=== PATIENT | male | born 1970 | race Caucasian/White ===

== ENCOUNTER 2018-05-23 16:55 | Emergency (ER) | payer SELFPAY ==
--- NOTE | 2018-05-23 17:03 | ER Report ---
History and Physical Time Seen By MD: 17:02 (STUART CASTRO MD) HPI/ROS CHIEF COMPLAINT: Public intoxicated HISTORY OF PRESENT ILLNESS: 48-year-old male brought in by the police for usp clearance for public intoxication however on arrival his pulse oxygenation was only at 74 he admits to drinking daily could potentially of aspirated patient is also smokes whenever he can get his hands on patient has no past medical history is aware of he denies any complaints this time other than being drunk he denies chest pain shortness of breath cough fever chills nausea vomiting diarrhea or abdominal pain REVIEW OF SYSTEMS: Respiratory: No cough, no dyspnea. Cardiovascular: No chest pain, no palpitations. Gastrointestinal: No vomiting, no abdominal pain. Musculoskeletal: No back pain. Remainder of the 14 system rev: Yes (STUART CASTRO MD) Allergies: Uncoded Allergies: seasonal (Allergy, Mild, 05/24/18) Congestion Home Meds No Active Prescriptions or Reported Meds Reviewed Nurses Notes: Yes Old Medical Records Reviewed: Yes (STUART CASTRO MD) Constitutional Vital Sign - Last 24 Hours 05/23/18 05/23/18 05/23/18 05/23/18 16:55 16:57 16:57 17:10 Temp 97.8 Pulse 119 115 114 Resp 24 12 B/P (MAP) 131/106 Pulse Ox 73 74 O2 Delivery Room Air O2 Flow Rate 5.0 05/23/18 05/23/18 05/23/18 05/23/18 17:20 17:25 17:30 18:18 Pulse 113 113 Resp 13 11 B/P (MAP) 153/103 (120) 137/88 (104) Pulse Ox 89 05/23/18 05/23/18 18:25 18:30 Pulse 106 Resp 34 B/P (MAP) 128/85 (99) Pulse Ox 89 (ALIA RESENDIZ MD) Physical Exam General Appearance: The patient is alert, has no immediate need for airway protection and no current signs of toxicity. Disheveled intoxicated smells of alcohol Eyes: Pupils equal and round no injection. Respiratory: Chest is non tender, lungs demonstrate an extra wheezes throughout both lung burton right slightly greater than left mild coarse crackles at the bases. Cardiac: regular rate and rhythm [ ] Gastrointestinal: Abdomen is soft and non tender, no masses, bowel sounds normal. Musculoskeletal: Neck: Neck is supple and non tender. Extremities have full range of motion and are non tender. Skin: No rashes or lesions. [ Neurologically intact GCS of 15 alert and oriented 4] DIFFERENTIAL DIAGNOSIS: After history and physical exam differential diagnosis was considered for COPD congestive heart failure myocardial infarction pneumonia (STUART CASTRO MD) Medical Decision Making Data Points Result Diagram: 05/23/18 1710 05/23/18 1710 Laboratory Hematology Test 05/23/18 17:10 05/23/18 17:43 05/23/18 20:39 Red Blood Count 4.81 M/uL (4.00-5.60) Mean Corpuscular Volume 104.3 fL (80.0-96.0) Mean Corpuscular Hemoglobin 37.0 pg (26.0-33.0) Mean Corpuscular Hemoglobin Concent 35.5 g/dL (32.0-36.0) Red Cell Distribution Width 13.0 % (11.5-14.5) Mean Platelet Volume 8.6 fL (7.2-11.1) Neutrophils (%) (Auto) 57.9 % (39.4-72.5) Lymphocytes (%) (Auto) 32.4 % (17.6-49.6) Monocytes (%) (Auto) 8.8 % (4.1-12.4) Eosinophils (%) (Auto) 0.2 % (0.4-6.7) Basophils (%) (Auto) 0.7 % (0.3-1.4) Nucleated RBC Relative Count (auto) 0.0 /100WBC Neutrophils # (Auto) 3.9 K/uL (2.0-7.4) Lymphocytes # (Auto) 2.2 K/uL (1.3-3.6) Monocytes # (Auto) 0.6 K/uL (0.3-1.0) Eosinophils # (Auto) 0.0 K/uL (0.0-0.5) Basophils # (Auto) 0.0 K/uL (0.0-0.1) Nucleated RBC Absolute Count (auto) 0.00 K/uL D-Dimer Quantitative (PE/DVT) 3.81 ug/ml (0-0.50) Sodium Level 143 mmol/L (137-145) Potassium Level 4.0 mmol/L (3.5-5.0) Chloride Level 101 mmol/L (98-107) Carbon Dioxide Level 27 mmol/L (22-30) Blood Urea Nitrogen 8 mg/dl (9-21) Creatinine 0.50 mg/dl (0.66-1.25) Glomerular Filtration Rate Calc > 60.0 Random Glucose 108 mg/dl (75-110) Calcium Level 9.1 mg/dl (8.4-10.2) Magnesium Level 1.5 mg/dl (1.7-2.2) Total Bilirubin 0.7 mg/dl (0.2-1.3) Aspartate Amino Transf (AST/SGOT) 163 U/L (0-35) Alanine Aminotransferase (ALT/SGPT) 82 U/L (0-56) Alkaline Phosphatase 85 U/L (0-126) Troponin I 0.017 ng/ml B-Type Natriuretic Peptide 18 pg/ml (0-100) Total Protein 7.9 g/dl (6.3-8.2) Albumin 4.5 g/dl (3.5-5.0) Salicylates Level < 10 mg/L Salicylate Last Dose Date unk Acetaminophen Level < 10 ug/ml Serum Alcohol 526 mg/dl Blood Gas Puncture Site Right radial Blood Gas Patient Temperature 97.8 DEGREES Arterial Blood pH 7.44 (7.35-7.45) Arterial Blood Partial Pressure CO2 37 mmHg (32-37) Arterial Blood Partial Pressure O2 79 mmHg (60-80) Arterial Blood HCO3 25 mmol/L (20-26) Arterial Blood Oxygen Saturation 96 % (92-100) Arterial Blood Base Excess 1.0 mmol/L Geovanny Test Acceptable Oxygen Liters/Minute 4l Urine Opiates Screen Negative Urine Barbiturates Screen Negative Ur Tricyclic Antidepressants Screen Negative Urine Phencyclidine Screen Negative Urine Amphetamines Screen Negative Urine Benzodiazepines Screen Negative Urine Cocaine Screen Negative Urine Cannabinoids Screen Negative Chemistry Test 05/23/18 17:10 05/23/18 17:43 05/23/18 20:39 White Blood Count 6.8 k/uL (4.5-11.0) Red Blood Count 4.81 M/uL (4.00-5.60) Hemoglobin 17.8 g/dL (14.0-18.0) Hematocrit 50.1 % (42.0-52.0) Mean Corpuscular Volume 104.3 fL (80.0-96.0) Mean Corpuscular Hemoglobin 37.0 pg (26.0-33.0) Mean Corpuscular Hemoglobin Concent 35.5 g/dL (32.0-36.0) Red Cell Distribution Width 13.0 % (11.5-14.5) Platelet Count 130 K/uL (150-450) Mean Platelet Volume 8.6 fL (7.2-11.1) Neutrophils (%) (Auto) 57.9 % (39.4-72.5) Lymphocytes (%) (Auto) 32.4 % (17.6-49.6) Monocytes (%) (Auto) 8.8 % (4.1-12.4) Eosinophils (%) (Auto) 0.2 % (0.4-6.7) Basophils (%) (Auto) 0.7 % (0.3-1.4) Nucleated RBC Relative Count (auto) 0.0 /100WBC Neutrophils # (Auto) 3.9 K/uL (2.0-7.4) Lymphocytes # (Auto) 2.2 K/uL (1.3-3.6) Monocytes # (Auto) 0.6 K/uL (0.3-1.0) Eosinophils # (Auto) 0.0 K/uL (0.0-0.5) Basophils # (Auto) 0.0 K/uL (0.0-0.1) Nucleated RBC Absolute Count (auto) 0.00 K/uL D-Dimer Quantitative (PE/DVT) 3.81 ug/ml (0-0.50) Glomerular Filtration Rate Calc > 60.0 Calcium Level 9.1 mg/dl (8.4-10.2) Magnesium Level 1.5 mg/dl (1.7-2.2) Total Bilirubin 0.7 mg/dl (0.2-1.3) Aspartate Amino Transf (AST/SGOT) 163 U/L (0-35) Alanine Aminotransferase (ALT/SGPT) 82 U/L (0-56) Alkaline Phosphatase 85 U/L (0-126) Troponin I 0.017 ng/ml B-Type Natriuretic Peptide 18 pg/ml (0-100) Total Protein 7.9 g/dl (6.3-8.2) Albumin 4.5 g/dl (3.5-5.0) Salicylates Level < 10 mg/L Salicylate Last Dose Date unk Acetaminophen Level < 10 ug/ml Serum Alcohol 526 mg/dl Blood Gas Puncture Site Right radial Blood Gas Patient Temperature 97.8 DEGREES Arterial Blood pH 7.44 (7.35-7.45) Arterial Blood Partial Pressure CO2 37 mmHg (32-37) Arterial Blood Partial Pressure O2 79 mmHg (60-80) Arterial Blood HCO3 25 mmol/L (20-26) Arterial Blood Oxygen Saturation 96 % (92-100) Arterial Blood Base Excess 1.0 mmol/L Geovanny Test Acceptable Oxygen Liters/Minute 4l Urine Opiates Screen Negative Urine Barbiturates Screen Negative Ur Tricyclic Antidepressants Screen Negative Urine Phencyclidine Screen Negative Urine Amphetamines Screen Negative Urine Benzodiazepines Screen Negative Urine Cocaine Screen Negative Urine Cannabinoids Screen Negative Coagulation Test 05/23/18 17:10 D-Dimer Quantitative (PE/DVT) 3.81 ug/ml Toxicology Test 05/23/18 17:10 05/23/18 20:39 Salicylates Level < 10 mg/L Salicylate Last Dose Date unk Acetaminophen Level < 10 ug/ml Serum Alcohol 526 mg/dl Urine Opiates Screen Negative Urine Barbiturates Screen Negative Ur Tricyclic Antidepressants Screen Negative Urine Phencyclidine Screen Negative Urine Amphetamines Screen Negative Urine Benzodiazepines Screen Negative Urine Cocaine Screen Negative Urine Cannabinoids Screen Negative (ALIA RESENDIZ MD) ED Course/Re-evaluation ED Course Discussed this patient with Dr. Casrto at shift change, sign-out, and assumed care of the patient. CTA of the chest, CT of the cervical spine, and chest x-ray were obtained. These were negative for acute problems. Hypoxia has improved, small amount of oxygen still needed, and thought due to intoxication only as it drops when the patient sleeps. Labs show alcohol at 526. Changes in other labs consistent with chronic alcohol use. The patient has expressed interest at being admitted to the hospital so he can stop drinking. Given a Banana Bag IV after CT scans were done. Discussed case with Dr. See, who has accepted the patient for admission to [facility]. Decision to Disposition Date: May 23, 2018 Decision to Disposition Time: 19:52 (ALIA RESENDIZ MD) Depart Departure Latest Vital Signs Vital Signs Date Time Temp Pulse Resp B/P (MAP) Pulse Ox O2 Delivery O2 Flow Rate FiO2 05/23/18 18:30 128/85 (99) 05/23/18 18:25 106 34 89 05/23/18 16:57 5.0 05/23/18 16:57 97.8 Room Air (ALIA RESENDIZ MD) Impression: Primary Impression: Alcohol intoxication Additional Impression: Alcohol use disorder, severe, dependence Condition: Improved Disposition: XFER TO [facility] New Scripts No Active Prescriptions or Reported Meds Problem Qualifiers Primary Impression: Alcohol intoxication Complication of substance-induced condition: uncomplicated Qualified Codes: F10.920 - Alcohol use, unspecified with intoxication, uncomplicated STUART CASTRO MD May 23, 2018 17:03 ALIA RESENDIZ MD May 23, 2018 18:05
[2018-05-23] MEDS ORDERED: ALBUTEROL/IPRATROPIUM 3 ML NEB NEB ONE (17:05)
[2018-05-23 17:24] LABS: PLATELET COUNT, AUTOMATED 130 K/uL (150-450)
[2018-05-23] MEDS ORDERED: IOPAMIDOL 76% 100 ML INFUS BTL 100 ML ONE (18:05)
[2018-05-23] MEDS ORDERED: NS 0.9% 25 ML BAG 50 ML ONE (18:05)
--- NOTE | 2018-05-23 18:15 | RADIOLOGY IMAGING REPORT ---
FACILITY: [facility] - [place] PATIENT NAME: Jesus Massey : 1970 MR: [id number] V: [id number] EXAM DATE: ORDERING PHYSICIAN: STUART CASTRO TECHNOLOGIST: Location: [facility] [place] Patient: Jesus Massey : 1970 Visit/Account:[id number] Date of Sevice: 05/23/2018 EXAMINATION: Cervical spine radiographs 2 views HISTORY: Fall. COMPARISON: None. FINDINGS: AP and lateral views of the cervical spine are obtained. Bones: The lower cervical spine is not well visualized on the lateral view. No evidence of acute fra cture in the visualized portions of the cervical spine. Disc spaces: Disc degenerative changes in the lower cervical spine. Posterior elements: No evidence of acute fracture. Alignment: Normal. Hardware: None. Soft tissues: Negative. Visualized lung apices: Negative. IMPRESSION: The lower cervical spine is not well visualized on the lateral radiograph. No evidence of acute fracture of the cervical spine. Disc degenerative changes in the cervical spine. Report Dictated By: Kolton Medel MD at 05/23/2018 6:07 PM Report E-Signed By: Kolton Medel MD at 05/23/2018 6:11 PM WSN:[id number]
--- NOTE | 2018-05-23 18:17 | RADIOLOGY IMAGING REPORT ---
FACILITY: [facility] PATIENT NAME: Jesus Massey : 1970 MR: [id number] V: [id number] EXAM DATE: ORDERING PHYSICIAN: STUART CASTRO TECHNOLOGIST: Location: [facility] - [place] Patient: Jesus Massey : 1970 Visit/Account:[id number] Date of Sevice: 05/23/2018 EXAMINATION: Chest radiographs 2 views HISTORY: Shortness of breath. COMPARISON: None. FINDINGS: PA and lateral views of the chest are submitted. Lines/tubes: None. Lungs/pleura: No focal consolidation or pleural effusion. Pulmonary vascularity is within normal sullivan its. No evidence of pneumothorax. Heart: Normal heart size. Mediastinum: Negative. Bony structures/body wall: Negative. IMPRESSION: No radiographic evidence of acute cardiopulmonary disease. Report Dictated By: Kolton Medel MD at 05/23/2018 6:12 PM Report E-Signed By: Kolton Medel MD at 05/23/2018 6:13 PM WSN:[id number]
[2018-05-23] MEDS ORDERED: THIAMINE HCL(*) 200 MG/2 ML IN 100 MG, FOLIC ACID(*) 50 MG/10 ML INJ 1 MG, MULTIVITAMIN... IV ONE (18:25)
[2018-05-23] MEDS ORDERED: MAGNESIUM SUL 50% 1GM/2ML VIAL ONE (18:29)
[2018-05-23 18:30] VITALS: BP 128/85
--- NOTE | 2018-05-23 18:31 | EKG ---
FACILITY: [facility] PATIENT NAME: ILSA DOSS : [id number] MR: [id number] V: [id number] EXAM DATE: ORDERING PHYSICIAN: STUART CASTRO TECHNOLOGIST: ALBERTINA Test Reason : ETOH Blood Pressure : / mmHG Vent. Rate : 105 BPM Atrial Rate : 105 BPM P-R Int : 156 ms QRS Dur : 086 ms QT Int : 362 ms P-R-T Axes : 065 072 056 degrees QTc Int : 478 ms Sinus tachycardia Possible Anterior infarct , age undetermined Abnormal ECG No previous ECGs available Confirmed by RUPERT MEYERS ([id number]) on 05/23/2018 9:39:09 PM Referred By: MATTHEW Confirmed By:RUPERT MEYERS
--- NOTE | 2018-05-23 18:51 | RADIOLOGY IMAGING REPORT ---
[place] [facility] [place] NAME: Jesus Massey : 1970 MR: [id number] V: [id number] EXAM DATE: ORDERING PHYSICIAN: STUART CASTRO TECHNOLOGIST: Location: [facility] - [place] Patient: Jesus Massey : 1970 Visit/Account:[id number] Date of Sevice: 05/23/2018 CT angiogram chest with contrast Indication: Shortness breath. Fall. Comparison: None available. Technique: Axial CT images are obtained through the chest after administration of 100 mL Isovue 370 I V contrast. Reformatted coronal and sagittal images were reviewed as well as coronal MIP images. One of the following dose optimization techniques was utilized in the performance of this exam: auto mated exposure control; adjustment of the mA and/or kV according to the patient's size; or use of an iterative reconstruction technique. Specific details can be referenced in the facility's radiology C T exam operational policy. FINDINGS: No evidence of filling defect within the pulmonary vasculature to suggest pulmonary embolus. Heart is normal size without pericardial effusion. Aorta shows no aneurysm or dissection. The mediast inum and hilar regions show no enlarged lymph nodes or abnormal density. Lungs show dependent atelectasis. No consolidations, pleural effusion or pneumothorax. There are dorene ral small thin-walled cyst seen in both lungs mainly in the lower lung burton without focal abnormali ty. These are nonspecific and appear to be thin-walled benign fossa from a previous insult. No discre te nodules or focal interstitial opacities. Airways are clear. Bony structures show no acute fracture or aggressive bony lesions. Degenerative changes spine. The ch est wall shows no enlarged axillary lymph nodes or masses. Small hiatal hernia. The liver is diffusely hypodense without focal abnormality. The left adrenal gla nd does show a 1.2 cm nodule Hounsfield 1 consistent with adenoma. Upper abdomen is otherwise unremar kable. IMPRESSION: 1. No evidence of pulmonary embolus. 2. No acute cardiothoracic abnormality 3. Hypodense liver consistent with fatty infiltration or chronic disease. No focal abnormality. 4. Left adrenal gland adenoma. 5. Other chronic findings as above. Report Dictated By: Bryson Ruby at 05/23/2018 6:37 PM Report E-Signed By: Bryson Ruby at 05/23/2018 6:47 PM WSN:[id number]
== END 2018-05-24 02:08 ==
LOC: ER 17:08
DX: F10.229 Alcohol dependence with intoxication, unspecified (principal); R00.0 Tachycardia, unspecified; R09.02 Hypoxemia; R06.02 Shortness of breath
CPT/HCPCS: 71046; 71275; 72040; 80305; 80320; 80329; 82803; 83735; 83880; 84484; 85025; 85379; 93005; 94640; 96365; 96366; 99284; J3411; J3475; J7030; J7620; Q9967; 82040; 82247; 82310; 82374; 82435; 82565; 82947; 84075; 84132; 84155; 84295; 84450; 84460; 84520

== ENCOUNTER 2018-05-23 22:00 | Inpatient (IN) | payer SELFPAY ==
[~2018-05-23] VITALS: Ht 185.4 cm; Wt 74.8 kg
[2018-05-23] MEDS ORDERED: MAG HYD/AL HYD/SIMETH 30ML UDC PO PRN (22:20)
[2018-05-23 22:29] VITALS: BP 130/85
[2018-05-23] MEDS: DIAZEPAM 10 MG TAB PO PRN ×2 (22:43→23:38)
[2018-05-24] VITALS (9 sets, daily range): BP systolic 103–142; BP diastolic 64–95
[2018-05-24] MEDS: DIAZEPAM 10 MG TAB PO PRN ×12 (00:40→19:48)
[2018-05-24] MEDS: ALBUTEROL/IPRATROPIUM 3 ML NEB NEB PRN ×2 (07:53→12:56)
[2018-05-24] MEDS: FOLIC ACID 1 MG TAB PO SCH (08:18)
[2018-05-24] MEDS: MULTIVITAMINS TAB PO SCH (08:18)
[2018-05-24] MEDS: THIAMINE HCL 100 MG TAB PO SCH (08:19)
[2018-05-24 09:06] LABS: PLATELET COUNT, AUTOMATED 100 K/uL (150-450)
[2018-05-24] MEDS ORDERED: LOPERAMIDE HCL 2 MG CAP PO ONE (13:55)
--- NOTE | 2018-05-24 14:06 | SCHAAF H&P ---
DATE OF ADMISSION: May 23, 2018 The patient was seen in the a.m. of May 24, 2108 at approximately 1030 hours for note concerning this dictation. PRESENTING PROBLEM, CHIEF COMPLAINT Severe alcohol intoxication and pending alcohol withdrawal. HISTORY OF PRESENT ILLNESS This is 48-year-old male who arrived in the Emergency Room accompanied by police to take him to [facility]. The patient again, taken to the Emergency Room initially for medical clearance to go to [facility] for a public intoxication charge. While the patient was in the Emergency Room he was found to have a critically high blood alcohol level of 526. It was believed to be at that point the police decided that he should not go to [facility] for any related charges. The patient at that time was being monitored to sober up some, where he could voluntarily go home. The patient then reporting that he would like help with alcohol withdrawal treatment. The patient was given a Banana-Bag, continued to be monitored for any medical distress, and was eventually admitted on a voluntary basis to the Behavioral Health unit. The patient requiring Valium throughout the night. The patient having active alcohol withdrawal, even in the presence of extreme amounts of alcohol. During the next day's interview, the patient in a state that made any productive interview very difficult at best. The patient states he does not have much of a memory of a last night. He did talk about entering rehab and suffering from long-term alcohol use disorder. The patient cooperative, polite, and patient agreed to stay until alcohol withdrawal could be completed. MENTAL HEALTH HISTORY The rest of mental health history is unknown at this time. FAMILY PSYCHIATRIC HISTORY/PAST MEDICAL HISTORY/SOCIAL HISTORY Unknown. LEGAL HISTORY The patient has a legal history significant for two DUI's. The patient denying any other symptoms of psychiatric concerns. SUBSTANCE ABUSE HISTORY The patient was able to report that he is a pack-a-day smoker and appears to have some clubbing on fingers as well, and this may impair current oxygen saturations which are being monitored closely. PHYSICAL EXAMINATION Please see emergency room note. Notable for a critically intoxicated 48-year- old male at time of arrival. Vital signs at the time of admission: Temperature 97.8, pulse 115, respiratory rate 24, blood pressure 131/106 and pulse oximetry 74% and low on room air at 5 liters. LABORATORY DATA MCV elevated at 104.3 with an MCH elevated at 37, platelet count 130,000. D- Dimer was elevated at 3.81. Chemistry panel notable for AST elevated at 163, ALT 82. Magnesium slightly low at 1.5 with a total bilirubin of 0.7. Beta natriuretic peptide was 18. Toxicology screen negative for substances of abuse with a serum alcohol level of 526. The patient had imaging of chest done secondary to chest pain and shortness of breath which was unremarkable for acute changes. Please see electronic record. MENTAL STATUS EXAMINATION GENERAL APPEARANCE, BEHAVIOR AND ATTITUDE: This is pleasant, polite and cooperative 48-year-old male continuing to withdrawal from alcohol at this time and being actively treated. Psychomotor retardation evident. Note periods of tearfulness. The patient to make eye contact and communicate softly. SPEECH: Soft and slowed. MOOD: Unable to fully assess. AFFECT: Calm. THOUGHT PROCESSES: The patient able to indicate he would like to stay for help with alcohol withdrawal. No loose associations or flight of ideas. THOUGHT CONTENT: Free of any obvious auditory or visual hallucinations, ideas of reference, thought broadcastings, delusions, obsessions or compulsions. The patient not to believe to have any suicidal or homicidal ideations. SENSORIUM: Clouded. COGNITION: Patient largely alert and oriented to person, place. MEMORY: Immediate, recent and remote estimated at grossly intact in the absence of alcohol. INTELLIGENCE: Unable to fully assess. INSIGHT AND JUDGMENT: In the absence of acute intoxication or withdrawal, likely to be found to be intact. ASSESSMENT This is a 48-year-old male admitted voluntarily for alcohol withdrawal in the state of extreme alcohol intoxication with a blood alcohol of 526. At this time will continue to treat the patient's withdrawal and monitor closely for any other medical concerns including what appears to be a chronic hypoxic state, possibly worsened by acute intoxication along with treatment with Benzodiazepines for withdrawal. Will continue to gain collateral information. DIAGNOSES PER DSM 5 1. Alcohol intoxication. 2. Alcohol use disorder, severe. 3. Alcohol withdrawal. PLAN 1. Will admit to the unit. 2. Necessary precautions will be implemented. 3. The patient will participate in individual and group therapy. 4. Medications will be administered and titrated accordingly. Will treat alcohol withdrawal with Diazepam per [facility] protocol. 5. Collateral information to be obtained as necessary. 6. Estimated length of stay five to seven days. [facility]
[2018-05-25 00:36] VITALS: BP 134/76
[2018-05-25 03:13] VITALS: BP 132/80
[2018-05-25] MEDS: LOPERAMIDE HCL 2 MG CAP PO PRN ×3 (03:17→12:53)
[2018-05-25 06:30] VITALS: BP 132/82
[2018-05-25 06:40] LABS: PLATELET COUNT, AUTOMATED 81 K/uL (150-450)
[2018-05-25] MEDS: MULTIVITAMINS TAB PO SCH (08:17)
[2018-05-25] MEDS: FOLIC ACID 1 MG TAB PO SCH (08:17)
[2018-05-25] MEDS: THIAMINE HCL 100 MG TAB PO SCH (08:17)
[2018-05-25 09:50] VITALS: BP 140/88
[2018-05-25 12:05] VITALS: BP 142/92
--- NOTE | 2018-05-25 14:50 | BHS Progress Note ---
BHS - Subjective Progress Notes Subjective Pt seen in treatment team meeting with staff. Pt doing better today than yesterday, though still scoring 11 this am on CIWA, is tremulous, unsteady on his feet, has had diarrhea, still needing supplemental O2 at 6 L nasal cannula to maintain sats. Yesterday required 240 mg total of valium. Later in the afternoon today he is doing better, as of 2:40 pm has maintained O2 sats at 90- 91 on room air, did get up and get a shower, is feeling better, has not needed any valium this shift. Pt reports a desire to go to rehab, we discussed the options available in [place]. He reports that he did have a 7 year period of sobriety beginning in 2004. He has in past attended AA meetings regularly and had a sponsor. He currently lives with roommates who drink. He has been employed as a [employer] contractor. He says he has a decent relationship with mother and sister who live in [place]. We discussed the finding of fatty liver noted on CT scan done in ER, and how this will progress to cirrhosis if he keeps drinking. Will continue to monitor CIWA's and O2 sats, using valium as needed. He started eating this am at breakfast-- will check chem panel again tomorrow am, mg was a bit low at 1.4 but this may correct with po intake. Suicidal Ideation: None Homicidal Ideation: None BHS - Objective Physical Exam Vital Signs Vital Signs 05/25/18 05/25/18 05/25/18 12:05 13:15 14:10 Temp 98.5 Pulse 105 Resp 20 B/P (MAP) 142/92 (109) Pulse Ox 90 O2 Delivery Room Air O2 Flow Rate 6.0 Muscle Strength and Tone: Other (generalized weakness by observation) Gait and Station: Unsteady [facility] Medications Reviewed: Side Effects, Benefits of Medication, Risks Allergies Reviewed: Yes Mental Status Exam General Appearance: Unkept, Tearful, Other (tremulous) Speech: Slurred, Garbled Mood: Dysthmic/Depressed Affect: Sad, Flat, Withdrawn, Other (ill-appearing c/w alcohol withdrawal) Thought Process: Organized, Logical, Goal Directed Thought Content: No Suicidal Ideation, No Homicidal Ideation, No Delusions, No Auditory Halllucinations, No Visual Hallucinations, No Thought Broadcasting, No Ideas of Reference, No Obsessions, No Compulsions, No Other Sensorium: Clear Cognition: Alert & Oriented-Person, Alert & Oriented-Place, Alert-Oriented- Situation Memory: Immediate, Recent, Remote Intelligence: Average Insight Judgment: Fair Result Diagram: 05/25/1825 05/25/1825 [facility] Assessment and Plan [id number] Encounter Date: May 25, 2018 [id number] Encounter Time: 09:00 [facility] Plan: Admit to Unit, Necessary Precautions, Individual/Group Therapy, Admin /Titrate Meds, Educate Patient Tobacco Medications: Started Multpiple Antipsychotics Used: No Problems: (1) Alcohol withdrawal (2) Alcohol use disorder, severe, dependence Status: Acute RANDA MARRERO MD May 25, 2018 14:49
[2018-05-25 17:46] VITALS: BP 138/92
[2018-05-25] MEDS: DIAZEPAM 10 MG TAB PO PRN (21:12)
[2018-05-26 00:10] VITALS: BP 126/82
[2018-05-26 06:49] LABS: PLATELET COUNT, AUTOMATED 85 K/uL (150-450)
[2018-05-26 08:10] VITALS: BP 136/78
[2018-05-26] MEDS: THIAMINE HCL 100 MG TAB PO SCH (08:16)
[2018-05-26] MEDS: FOLIC ACID 1 MG TAB PO SCH (08:16)
[2018-05-26] MEDS: MULTIVITAMINS TAB PO SCH (08:16)
[2018-05-26] MEDS: NICOTINE INH SYSTEM 10 MG/INH INH PRN (11:28)
[2018-05-26] MEDS: NICOTINE CARTRIDGE 1 EA PO PRN ×2 (11:29→17:48)
--- NOTE | 2018-05-26 14:39 | BHS Progress Note ---
[facility] - Subjective Progress Notes Subjective Pt seen in conference room with team. Pt reports feeling much better today. Last valium was last night at [facility]. Slept well. Appetite good, diarrhea resolving. Still tremulous and somewhat unsteady on his feet. Pt is motivated for transfer to rehab facility, we are in the process of applying to [facility] and to [facility], TB test will be read tomorrow. Pt cooperative with psychoeducation modules r.e. alcohol dependence. Talking about his past history with AA, talking about the losses that relapse to alcohol have caused over the past 7 years. Will discontinue CIWA assessments, but will continue to monitor pulse ox's just in case-- he continues to maintain about 90% on room air. Suicidal Ideation: None Homicidal Ideation: None [facility] - Objective Physical Exam Vital Signs Vital Signs 05/26/18 05/26/18 05/26/18 08:10 11:35 11:47 Temp 99.1 Pulse 83 Resp 16 B/P (MAP) 136/78 (97) Pulse Ox 91 O2 Delivery Room Air O2 Flow Rate 2.0 Muscle Strength and Tone: Other (generalized weakness by observation) Gait and Station: Unsteady [facility] Medications Reviewed: Side Effects, Benefits of Medication, Risks Allergies Reviewed: Yes Mental Status Exam General Appearance: Casual, Good Eye Contact, Cooperative, Polite, Good Interaction, Other (tremulous) Speech: Clear, Spontaneous, Normal Rate, Normal Rhythm, Normal Tone Mood: Dysthmic/Depressed Affect: Sad, Flat, Withdrawn, Anxious, Other Thought Process: Organized, Logical, Goal Directed Thought Content: No Suicidal Ideation, No Homicidal Ideation, No Delusions, No Auditory Halllucinations, No Visual Hallucinations, No Thought Broadcasting, No Ideas of Reference, No Obsessions, No Compulsions, No Other Sensorium: Clear Cognition: Alert & Oriented-Person, Alert & Oriented-Place, Alert-Oriented- Situation Memory: Immediate, Recent, Remote Intelligence: Average Insight Judgment: Fair Result Diagram: 05/26/1863905/26/18639 [facility] Assessment and Plan Adhc-ln-[id number] Encounter Date: May 26, 2018 Bdeb-yl-Dspz Encounter Time: 09:45 [facility] Plan: Admit to Unit, Necessary Precautions, Individual/Group Therapy, Admin /Titrate Meds, Educate Patient Tobacco Medications: Started Multpiple Antipsychotics Used: No Problems: (1) Alcohol withdrawal (2) Alcohol use disorder, severe, dependence Status: Acute RANDA MARRERO MD May 26, 2018 14:39
[2018-05-26] MEDS ORDERED: MIRTAZAPINE 15 MG TAB PO SCH (22:15)
[2018-05-27 04:04] VITALS: BP 132/84
[2018-05-27 06:25] VITALS: BP 136/104
[2018-05-27] MEDS: DIAZEPAM 10 MG TAB PO PRN ×7 (06:52→13:53)
[2018-05-27 07:11] LABS: PLATELET COUNT, AUTOMATED 96 K/uL (150-450)
[2018-05-27] MEDS: MULTIVITAMINS TAB PO SCH (08:21)
[2018-05-27] MEDS: THIAMINE HCL 100 MG TAB PO SCH (08:21)
[2018-05-27] MEDS: FOLIC ACID 1 MG TAB PO SCH (08:21)
[2018-05-27 08:54] VITALS: BP 140/100
[2018-05-27] MEDS: NICOTINE CARTRIDGE 1 EA PO PRN (09:22)
[2018-05-27] MEDS: NICOTINE INH SYSTEM 10 MG/INH INH PRN (09:22)
[2018-05-27 11:15] VITALS: BP 140/80
[2018-05-27] MEDS ORDERED: OLANZapine 5 MG TAB PO ONE ×2 (11:35→13:45)
--- NOTE | 2018-05-27 12:09 | BHS Progress Note ---
[facility] - Subjective Progress Notes Subjective Pt seen in conference room with staff. Pt has regressed-- since about midnight slowly increasing agitation and confusion, insomnia. By about 6 am CIWA score was 17, and pt medicated with valium 20mg. As of now (11:30 am) he has had 80 mg of valium and CIWA is 27, so will re-load with 20 mg q 1 hour X 3 doses. Continue to follow CIWA protocol. Pt is confused and wandering the unit-- denies active hallucinations-- but we may need to move him into Unit C for his safety to help contain him a bit. He is cooperative. Diarrhea had resolved yesterday and has now re-started. Once CIWA scores begin to normalize again we will need to wean him more slowly off the valium for 48 hours or so. Suicidal Ideation: None Homicidal Ideation: None [facility] - Objective Physical Exam Vital Signs Vital Signs 05/26/18 05/27/18 05/27/18 19:37 06:25 08:54 Temp 99.4 Pulse 121 Resp 19 B/P (MAP) 140/100 (113) Pulse Ox 93 O2 Delivery Room Air O2 Flow Rate 2.0 Muscle Strength and Tone: Other (generalized weakness by observation) Gait and Station: Unsteady [facility] Medications Reviewed: Side Effects, Benefits of Medication, Risks Allergies Reviewed: Yes Mental Status Exam General Appearance: Casual, Good Eye Contact, Cooperative, Polite, Good Interaction, Psychomotor Agitation, Other ( wandering the unit, testing doors, somewhat redirectable) Speech: Other (a little more rambling slurred compared to yesterday) Mood: Dysthmic/Depressed Affect: Agitated (moderately) Thought Process: Other (able to be logical to closed ended questions, but often circumstantial to tangential) Thought Content: No Suicidal Ideation, No Homicidal Ideation, No Delusions, No Auditory Halllucinations, No Visual Hallucinations, No Thought Broadcasting, No Ideas of Reference, No Obsessions, No Compulsions, No Other Sensorium: Clear Cognition: Alert & Oriented-Person, Alert & Oriented-Place, Alert & Oriented- Time, Yvlme-Hqibgrgl-Bkdsflwvi Memory: Immediate, Recent, Remote Intelligence: Average Insight Judgment: Poor (due to confusion with active alcohol withdrawal) Result Diagram: 05/27/18 0700 05/27/18 0700 BHS Assessment and Plan Lltg-xd-[id number] Encounter Date: May 27, 2018 Fgwd-ni-Yuxr Encounter Time: 10:15 S Plan: Admit to Unit, Necessary Precautions, Individual/Group Therapy, Admin /Titrate Meds, Educate Patient Tobacco Medications: Started Multpiple Antipsychotics Used: No Problems: (1) Alcohol withdrawal (2) Alcohol use disorder, severe, dependence Status: Acute RANDA MARRERO MD May 27, 2018 12:09
[2018-05-27] MEDS ORDERED: MAGNESIUM OXIDE 400 MG TAB PO SCH (12:15)
[2018-05-27 14:45] VITALS: BP 136/110
[2018-05-27] MEDS ORDERED: DIA5 PO (15:00)
[2018-05-27] MEDS ORDERED: THIA100T62 PO (15:01)
[2018-05-27] MEDS ORDERED: MULT-859 PO (15:01)
[2018-05-27] MEDS ORDERED: FOLI-68 PO (15:01)
[2018-05-27] MEDS ORDERED: MAGN400T4 PO (15:02)
[2018-05-27] MEDS ORDERED: MIRTAZAPINE 15 MG TAB PO SCH (21:00)
--- NOTE | 2018-05-27 22:45 | BHS Discharge Summary ---
[facility] Discharge Summary Cvoh-ua-Rnel Encounter Date: May 27, 2018 Llzs-xd-Rwyq Encounter Time: 11:10 Reason-Hosp/Final Diag (DSM-V): (1) Alcohol withdrawal Status: Acute Hospital Course & Plan: Pt was admitted to [facility] and detoxed per [facility] protocol using po valium. Pt initially needed 280 mg valium over first 48 hours, then stabilized for about 24 hours. He was cooperative and motivated to attend a rehab program after detox, but then decompensated with onset of increased agitation, and despite aggressive use of po valium (140 mg over 10 hours) CIWA scores increased up to 42, requiring transfer to ICU at about 3:30 pm on 2017 for medical management of delirium tremens. (2) Alcohol use disorder, severe, dependence Status: Chronic Physical Exam Latest Vital Signs Vital Signs 05/27/18 05/27/18 11:15 14:45 Temp 98.3 Pulse 126 Resp 16 B/P (MAP) 136/110 (119) Pulse Ox 96 O2 Delivery Nasal Cannula O2 Flow Rate 2.0 Mental Status Exam General Appearance: Psychomotor Agitation, Other (agitated, picking at clothing , removing O2 nasal cannula, unstable on his feet) Speech: Garbled Affect: Agitated Thought Process: Other (delerious) Thought Content: No Suicidal Ideation, No Homicidal Ideation, No Delusions, Auditory Halllucinations, Visual Hallucinations, No Thought Broadcasting, No Ideas of Reference, No Obsessions, No Compulsions, No Other Sensorium: Other (waxing and waning c/w DT's) Cognition: Alert & Oriented-Person, Alert & Oriented-Place Memory: Other (delerious) Intelligence: Average Insight Judgment: Poor Departure Result Diagram: 05/27/18 0700 05/27/18 07 Condition: Critical Discharge Comment transfer to ICU Discharge Instructions Home Meds Reported Medications Magnesium Oxide (MAG-OXIDE) 400 Mg Tablet, 400 MG PO QAM 05/27/18 Multivits,Ca,Minerals/Iron/Fa (THERA-M TABLET) 1 Each Tablet, 1 EACH PO DAILY 05/27/18 Folic Acid (FOLIC ACID) 1 Mg Tablet, 1 MG PO QDAY, TAB 05/27/18 Thiamine Hcl (THIAMINE HCL) 100 Mg Tablet, 100 MG PO DAILY 05/27/18 Diazepam (VALIUM) 5 Mg Tablet, 10-20 MG PO PP Y for FOLLOW [facility] PROTOCOL, 05/27/18 Multpiple Antipsychotics Used: No Diet: Regular Special Instructions: Discharge/Transfer to Medical Unit at [facility]. Complete detox. ABSTAIN FROM ALCOHOL. RANDA MARRERO MD May 27, 2018 22:45
== END 2018-05-27 15:57 | disposition still patient (30) | DRG 897 ==
LOC: BHS 22:00
PROVIDERS: ADMIT Psychiatry & Neurology Psychiatry; ATTEND Psychiatry & Neurology Psychiatry
DX: F10.239 Alcohol dependence with withdrawal, unspecified (principal); F10.231 Alcohol dependence with withdrawal delirium; F17.210 Nicotine dependence, cigarettes, uncomplicated; R68.3 Clubbing of fingers; G47.00 Insomnia, unspecified; R19.7 Diarrhea, unspecified; Y90.8 Blood alcohol level of 240 mg/100 ml or more
CPT/HCPCS: 36415; 80320; 81001; 82040; 82247; 82310; 82374; 82435; 82565; 82947; 83735; 84075; 84132; 84155; 84295; 84450; 84460; 84520; 85025; 86580; 94640

== ENCOUNTER → 2018-05-23 | Outpatient (CLI) | payer SELFPAY ==
[~2018-05-23] MED LIST: DIA5 PO; FOLI-68 PO; MAGN400T4 PO; MULT-859 PO; NIC10R INH; THIA100T62 PO
== END ==
LOC: AMB 16:38
PROVIDERS: ATTEND Nurse Practitioner
DX: F10.120 Alcohol abuse with intoxication, uncomplicated (principal); R11.2 Nausea with vomiting, unspecified
CPT/HCPCS: A0425; A0429

== ENCOUNTER 2018-05-27 15:57 | Inpatient (IN) | payer SELFPAY ==
[~2018-05-27 15:57] MED LIST changes: -NIC10R INH
[2018-05-27 16:04] VITALS: BP 148/101
--- NOTE | 2018-05-27 16:24 | History & Physical ---
History of Present Illness Chief Complaint Alcohol withdrawal History of Present Illness 48yo male with PMHx significant for long-term heavy alcohol use. He reports "splitting a fifth of bourbon three times a day" with his roommate for several years. He was admitted to the [facility] unit for withdrawal management. He has been getting more agitated over the past 12-[address] Amanda did not feel they would be able to manage him on their knight. At present, he is confused, tremulous, and somewhat agitated (picking at clothes and bedding). He has received approximately 100mg of oral Valium over the past 12 hours. History Problems: (1) Alcohol use disorder, severe, dependence Status: Chronic (2) Status post wrist surgery Status: Resolved (3) History of ankle surgery Status: Resolved Home Meds Reported Medications Magnesium Oxide (MAG-OXIDE) 400 Mg Tablet, 400 MG PO QAM 05/27/18 Multivits,Ca,Minerals/Iron/Fa (THERA-M TABLET) 1 Each Tablet, 1 EACH PO DAILY 05/27/18 Folic Acid (FOLIC ACID) 1 Mg Tablet, 1 MG PO QDAY, TAB 05/27/18 Thiamine Hcl (THIAMINE HCL) 100 Mg Tablet, 100 MG PO DAILY 05/27/18 Diazepam (VALIUM) 5 Mg Tablet, 10-20 MG PO PP Y for [facility] PROTOCOL, 05/27/18 Allergies: Uncoded Allergies: seasonal (Allergy, Mild, 05/24/18) Congestion Other Social/Family Hx Currently unobtainable Hx Smoking: Yes Smoking Status: Current: Every Day Smoker, Heavy Tobacco Smoker Exposure to Second Hand Smoke?: No Hx Alcohol Use: Yes Hx Substance Use Disorder: No Review of Systems Other Currently unobtainable Exam Vital Signs Vital Signs Date Time Temp Pulse Resp B/P (MAP) Pulse Ox O2 Delivery O2 Flow Rate FiO2 05/27/18 16:04 98.2 97 16 148/101 (117) 96 Nasal Cannula 2.0 General Appearance: Alert, Awake, Other (somewhat tremulous/he picks at clothes /bedding) Neuro: Other (moves all four extremities purposefully) Eyes: PERRLA ENT: Other (face symmetric/poor dentition) Neck: No Masses Cardiovascular: Other (Slightly tachycardic regular) Respiratory: Other (poor effort, but fairly clear) Chest: No Tenderness GI: Abd Soft and Non-Tender (BS present) Lymph: No Adenopathy Extremities: Warm, Perfused Integumentary: Skin Intact without Lesion / Mass Psych: Other (oriented to person and place, but not time) Medical Decision Making Data Points Item Value Date Time Serum Alcohol 190 mg/dl 05/24/18 0855 Urine Cannabinoids Screen Negative 05/23/182038 Urine Cocaine Screen Negative 05/23/182038 Urine Benzodiazepines Screen Negative 05/23/182038 Urine Amphetamines Screen Negative 05/23/182038 Urine Phencyclidine Screen Negative 05/23/182038 Ur Tricyclic Antidepressants Screen Negative 05/23/182038 Urine Barbiturates Screen Negative 05/23/182038 Urine Opiates Screen Negative 05/23/182038 Salicylates Level < 10 mg/L 05/23/181709 Acetaminophen Level < 10 ug/ml 05/23/181709 Serum Alcohol 526 mg/dl *H 05/23/181709 Tuberculin Skin Test 0 mm 05/25/18 0950 Urine Color Straw 05/23/182038 Urine Clarity Clear 05/23/182038 Urine pH 6.0 pH 05/23/182038 Urine Specific [place] 1.023 05/23/182038 Urine Protein Negative mg/dL 05/23/182038 Urine Glucose (UA) Negative mg/dL 05/23/182038 Urine Ketones Negative mg/dL 05/23/182038 Urine Nitrite Negative 05/23/182038 Urine Blood Negative 05/23/182038 Urine Bilirubin Negative 05/23/182038 Urine Urobilinogen Negative mg/dL 05/23/182038 Urine Leukocyte Esterase Negative 05/23/182038 Urine RBC <1 /HPF 05/23/182038 Urine WBC None /HPF 05/23/182038 Urine Squamous Epithelial Cells Few /LPF 05/23/182038 Urine Transitional Epithelial Cells Few /LPF 05/23/182038 Urine Bacteria Negative /HPF 05/23/182038 Urine Mucus None /HPF 05/23/182038 Sodium Level 143 mmol/L 05/23/18 1710 Potassium Level 4.0 mmol/L 05/23/18 1710 Chloride Level 101 mmol/L 05/23/18 1710 Carbon Dioxide Level 27 mmol/L 05/23/18 1710 Blood Urea Nitrogen 8 mg/dl L 05/23/18 1710 Creatinine 0.50 mg/dl L 05/23/18 1710 Glomerular Filtration Rate Calc > 60.0 05/23/18 1710 Random Glucose 108 mg/dl 05/23/18 1710 Calcium Level 9.1 mg/dl 05/23/18 1710 Total Bilirubin 0.7 mg/dl 05/23/18 1710 Aspartate Amino Transf (AST/SGOT) 163 U/L H 05/23/18 1710 Alanine Aminotransferase (ALT/SGPT) 82 U/L H 05/23/18 1710 Alkaline Phosphatase 85 U/L 05/23/18 1710 Troponin I 0.017 ng/ml 05/23/18 1710 Total Protein 7.9 g/dl 05/23/18 1710 Albumin 4.5 g/dl 05/23/18 1710 B-Type Natriuretic Peptide 18 pg/ml 05/23/18 1710 Magnesium Level 1.5 mg/dl L 05/23/18 1710 Magnesium Level 1.4 mg/dl L 05/27/18 1011 Albumin 3.8 g/dl 05/27/18 0700 Total Protein 6.8 g/dl 05/27/18 0700 Alkaline Phosphatase 81 U/L 05/27/18 0700 Alanine Aminotransferase (ALT/SGPT) 64 U/L H 05/27/18 0700 Aspartate Amino Transf (AST/SGOT) 120 U/L H 05/27/18 0700 Total Bilirubin 1.2 mg/dl 05/27/18 0700 Calcium Level 9.4 mg/dl 05/27/18 0700 Random Glucose 95 mg/dl 05/27/18 0700 Glomerular Filtration Rate Calc > 60.0 05/27/18 0700 Blood Urea Nitrogen 8 mg/dl L 05/27/18 0700 Creatinine 0.50 mg/dl L 05/27/18 0700 Carbon Dioxide Level 28 mmol/L 05/27/18 0700 Chloride Level 101 mmol/L 05/27/18 0700 Potassium Level 4.0 mmol/L 05/27/18 0700 Sodium Level 138 mmol/L 05/27/18 0700 White Blood Count 6.8 k/uL 05/23/18 1710 Hemoglobin 17.8 g/dL 05/23/18 1710 Hematocrit 50.1 % 05/23/18 1710 Mean Corpuscular Volume 104.3 fL H 05/23/18 1710 Platelet Count 130 K/uL L 05/23/18 1710 Platelet Count 96 K/uL L 05/27/18 07 Mean Corpuscular Hemoglobin 36.9 pg H 05/27/18 07 Mean Corpuscular Volume 106.3 fL H 05/27/18 0700 Hematocrit 47.2 % 05/27/18 07 Hemoglobin 16.4 g/dL 05/27/18 07 White Blood Count 6.2 k/uL 05/27/18 07 Mean Corpuscular Hemoglobin 37.0 pg H 05/23/18 1710 D-Dimer Quantitative (PE/DVT) 3.81 ug/ml H 05/23/18 1710 Blood Gas Puncture Site Right radial 05/23/18 174 Blood Gas Patient Temperature 97.8 DEGREES 05/23/18 174 Arterial Blood pH 7.44 05/23/18 174 Arterial Blood Partial Pressure CO2 37 mmHg 05/23/18 1743 Arterial Blood Partial Pressure O2 79 mmHg 05/23/18 1743 Arterial Blood HCO3 25 mmol/L 05/23/18 1743 Arterial Blood Oxygen Saturation 96 % 05/23/18 1743 Arterial Blood Base Excess 1.0 mmol/L 05/23/18 1743 Geovanny Test Acceptable 05/23/18 1743 Oxygen Liters/Minute 4l 05/23/18 1743 EKG / Imaging EKG Interpretation PATIENT NAME: JESUS MASSEY : [id number] MR: [id number] V: [id number] EXAM DATE: ORDERING PHYSICIAN: STUART CASTRO TECHNOLOGIST: ALBERTINA Test Reason : ETOH Blood Pressure : / mmHG Vent. Rate : 105 BPM Atrial Rate : 105 BPM P-R Int : 156 ms QRS Dur : 086 ms QT Int : 362 ms P-R-T Axes : 065 072 056 degrees QTc Int : 478 ms Sinus tachycardia Possible Anterior infarct , age undetermined Abnormal ECG No previous ECGs available Confirmed by RUPERT MEYERS ([id number]) on 05/23/2018 9:39:09 PM Referred By: MATTHEW Confirmed By:RUPERT MEYERS Imaging PATIENT NAME: Jesus Massey : 1970 MR: [id number] V: [id number] EXAM DATE: ORDERING PHYSICIAN: STUART CASTRO TECHNOLOGIST: Location: [facility] Patient: Jesus Massey : 1970 Visit/Account:[id number] Date of Sevice: 05/23/2018 CT angiogram chest with contrast Indication: Shortness breath. Fall. Comparison: None available. Technique: Axial CT images are obtained through the chest after administration of 100 mL Isovue 370 IV contrast. Reformatted coronal and sagittal images were reviewed as well as coronal MIP images. One of the following dose optimization techniques was utilized in the performance of this exam: automated exposure control; adjustment of the mA and/ or kV according to the patient's size; or use of an iterative reconstruction technique. Specific details can be referenced in the facility's radiology CT exam operational policy. FINDINGS: No evidence of filling defect within the pulmonary vasculature to suggest pulmonary embolus. Heart is normal size without pericardial effusion. Aorta shows no aneurysm or dissection. The mediastinum and hilar regions show no enlarged lymph nodes or abnormal density. Lungs show dependent atelectasis. No consolidations, pleural effusion or pneumothorax. There are several small thin-walled cyst seen in both lungs mainly in the lower lung burton without focal abnormality. These are nonspecific and appear to be thin-walled benign fossa from a previous insult. No discrete nodules or focal interstitial opacities. Airways are clear. Bony structures show no acute fracture or aggressive bony lesions. Degenerative changes spine. The chest wall shows no enlarged axillary lymph nodes or masses. Small hiatal hernia. The liver is diffusely hypodense without focal abnormality. The left adrenal gland does show a 1.2 cm nodule Hounsfield 1 consistent with adenoma. Upper abdomen is otherwise unremarkable. IMPRESSION: 1. No evidence of pulmonary embolus. 2. No acute cardiothoracic abnormality 3. Hypodense liver consistent with fatty infiltration or chronic disease. No focal abnormality. 4. Left adrenal gland adenoma. 5. Other chronic findings as above. Report Dictated By: Bryson Ruby at 05/23/2018 6:37 PM Report E-Signed By: Bryson Ruby at 05/23/2018 6:47 PM WSN:[id number] PATIENT NAME: Jesus Massey : 1970 MR: [id number] V: [id number] EXAM DATE: ORDERING PHYSICIAN: STUART CASTRO TECHNOLOGIST: Location: [facility] Patient: Jesus Massey : 1970 Visit/Account:[id number] Date of Sevice: 05/23/2018 EXAMINATION: Cervical spine radiographs 2 views HISTORY: Fall. COMPARISON: None. FINDINGS: AP and lateral views of the cervical spine are obtained. Bones: The lower cervical spine is not well visualized on the lateral view. No evidence of acute fracture in the visualized portions of the cervical spine. Disc spaces: Disc degenerative changes in the lower cervical spine. Posterior elements: No evidence of acute fracture. Alignment: Normal. Hardware: None. Soft tissues: Negative. Visualized lung apices: Negative. IMPRESSION: The lower cervical spine is not well visualized on the lateral radiograph. No evidence of acute fracture of the cervical spine. Disc degenerative changes in the cervical spine. Report Dictated By: Kolton Medel MD at 05/23/2018 6:07 PM Report E-Signed By: Kolton Medel MD at 05/23/2018 6:11 PM WSN:[id number] PATIENT NAME: Jesus Massey : 1970 MR: [id number] V: [id number] EXAM DATE: ORDERING PHYSICIAN: STUART CASTRO TECHNOLOGIST: Location: [facility] Patient: Jesus Massey : 1970 Visit/Account:[id number] Date of Sevice: 05/23/2018 EXAMINATION: Chest radiographs 2 views HISTORY: Shortness of breath. COMPARISON: None. FINDINGS: PA and lateral views of the chest are submitted. Lines/tubes: None. Lungs/pleura: No focal consolidation or pleural effusion. Pulmonary vascularity is within normal limits. No evidence of pneumothorax. Heart: Normal heart size. Mediastinum: Negative. Bony structures/body wall: Negative. IMPRESSION: No radiographic evidence of acute cardiopulmonary disease. Report Dictated By: Kolton Medel MD at 05/23/2018 6:12 PM Report E-Signed By: Kolton Medel MD at 05/23/2018 6:13 PM WSN:[id number] Assessment and Plan Problems: (1) Alcohol withdrawal Status: Acute Assessment & Plan: Will transfer to the medical ICU. Continue CIWA protocol, use IV Ativan for symptom control. We may need to add other possible agent if symptoms don't improve. Will also replace magnesium and give B vitamins. Watch closely. (2) Alcohol use disorder, severe, dependence Status: Chronic Assessment & Plan: Apparently, he wants to detox and then pursue further treatment to maintain abstinence. Will have Psychiatry/Psychology see him again when symptoms have improved. (3) Hypomagnesemia Status: Acute Assessment & Plan: Will replace with IV magnesium. Watch labs. Venous Thromboembolism Antithrombotics Is Pt On Any Antithrombotics?: No Prophylaxis Tx Contraindicated Pharmacological Contraindicati: Low Platelet Count MARTI MCCULLOUGH MD May 27, 2018 16:24
[2018-05-27] MEDS ORDERED: MAGNESIUM SUL* 2 GM/50 ML IVPB 50 ML IVPB ONE (16:25)
[2018-05-27] MEDS: NS(*) 0.9% 1000 ML BAG 1,000 ML IV PRN (16:34)
[2018-05-27] MEDS: LORazepam 2 MG/ML VIAL IVP PRN ×4 (16:42→20:40)
[2018-05-27 19:37] VITALS: BP 142/91
[2018-05-27] MEDS: DEXMEDETOMIDINE IN 0.9 % NACL 100 ML IV PRN (19:45)
[2018-05-27 20:31] VITALS: BP 113/90
[2018-05-27] MEDS ORDERED: DEXTROSE IVPB SCH (21:00)
[2018-05-27] MEDS ORDERED: MAGNESIUM SULFATE IVPB SCH (21:00)
[2018-05-28] VITALS (10 sets, daily range): BP systolic 131–159; BP diastolic 95–104
[2018-05-28] MEDS: DEXMEDETOMIDINE IN 0.9 % NACL 100 ML IV PRN ×2 (01:49→10:34)
[2018-05-28] MEDS: NS(*) 0.9% 1000 ML BAG 1,000 ML IV PRN ×3 (01:50→23:04)
[2018-05-28 05:31] LABS: PLATELET COUNT, AUTOMATED 95 K/uL (150-450)
[2018-05-28] MEDS ORDERED: THIAMINE HCL 200 MG/2 ML INJ IVP SCH (09:00)
[2018-05-28] MEDS: LORazepam 2 MG/ML VIAL IVP PRN (10:33)
--- NOTE | 2018-05-28 12:38 | Hospitalist Progress Note ---
Subjective Progress Notes Subjective 48M admitted for EtOH w/d, remains sleepy today discussing people who are not present as though they are. Weaning Precedex and adding IV Ativan. Patient Complains of: Neurological: Confusion, No: Syncope, Weakness Respiratory: No: Cough, Congestion Gastrointestinal: No Nausea, No Vomiting Genitourinary: No Dysuria Musculoskeletal: Other (tremor) Physical Exam Vital Signs Date Time Temp Pulse Resp B/P (MAP) Pulse Ox O2 Delivery O2 Flow Rate FiO2 05/28/18 10:36 91 Room Air 05/28/18 10:35 98.0 60 16 156/102 (120) 05/27/18 16:04 2.0 Intake and Output 05/29/18 07:00 Intake Total 0 ml Balance 0 ml Intake Oral 0 ml General Appearance: No Acute Distress (halucinating) Neuro: No Gross deficits Eyes: PERRLA ENT: Normal Neck: No Masses Cardiovascular: Normal Rhythm & Peripheral Pulses Respiratory: No Respiratory Distress Chest: No Tenderness GI: Soft and Non-Tender Lymph: Cervical Nodes Benign Musculoskeletal: No Weakness/Pain Extremities: Warm, Pulses, Perfused Integumentary: Skin Intact without Lesion / Mass Result Diagram: 05/28/1852305/28/18523 Assessment and Plan Problems: (1) DTs (delirium tremens) Assessment & Plan: Patient hallucinating and agitated after arriving in MICU. Improving. (2) Alcohol withdrawal Status: Acute Assessment & Plan: Continue CIWA protocol, use IV Ativan for symptom control. Weaning Precedex. Will also replace magnesium and give B vitamins. Watch closely. Continues to have hallucinations. (3) Alcohol use disorder, severe, dependence Status: Chronic Assessment & Plan: Apparently, he wants to detox and then pursue further treatment to maintain abstinence. Will have Psychiatry/Psychology see him again when symptoms have improved. (4) Hypomagnesemia Status: Acute Assessment & Plan: Will replace with IV magnesium. Watch labs. Exam Sepsis Risk: No Definite Risk MARTIN SHREYAS MENDOZA DO May 28, 2018 12:38
[2018-05-28] MEDS ORDERED: NICOTINE CARTRIDGE 1 EA PO PRN (18:20)
[2018-05-28] MEDS: NICOTINE INH SYSTEM 10 MG/INH INH PRN (22:10)
[2018-05-29] VITALS: BP 151/102
[2018-05-29] MEDS: NICOTINE INH SYSTEM 10 MG/INH INH PRN (00:53)
[2018-05-29 02:00] VITALS: BP 141/94
[2018-05-29 03:42] VITALS: BP 151/99
[2018-05-29 04:00] VITALS: BP 148/95
[2018-05-29 06:00] VITALS: BP 144/95
[2018-05-29] MEDS ORDERED: DIAZEPAM 10 MG TAB PO PRN ×2 (08:25)
--- NOTE | 2018-05-29 08:31 | Hospitalist Progress Note ---
Subjective Progress Notes Subjective He is awake and alert. He has not required much Ativan. He is on very low Precedex this AM. Physical Exam Vital Signs Date Time Temp Pulse Resp B/P (MAP) Pulse Ox O2 Delivery O2 Flow Rate FiO2 05/29/18 06:00 144/95 (111) 89 Room Air 05/29/18 03:42 97.8 67 18 05/27/18 16:04 2.0 General Appearance: Alert, Awake, Other (minimal tremulousness) Neuro: No Gross deficits Cardiovascular: Regular Rate and Rhythm Respiratory: Clear to Auscultation GI: Soft and Non-Tender Psych: Other (Oriented to person/place/partially to time) Result Diagram: 05/28/18 0524 05/29/18 0504 Assessment and Plan Problems: (1) DTs (delirium tremens) Assessment & Plan: Much improved. Will transition off the IV Precedex and Ativan and back to oral Valium (as needed). If he does well, he should be able to go back to [facility] soon. (2) Alcohol withdrawal Status: Acute Assessment & Plan: Continue CIWA protocol, use oral Valium for symptom control (stop Precedex). Will replace magnesium again today and continue B vitamins. (3) Alcohol use disorder, severe, dependence Status: Chronic Assessment & Plan: Apparently, he wants to detox and then pursue further treatment to maintain abstinence. Will discuss with Psychiatry/Psychology about transfer back to [facility] unit. (4) Hypomagnesemia Status: Acute Assessment & Plan: Will replace with IV magnesium. Watch labs. Exam Sepsis Risk: No Definite Risk MARTI MCCULLOUGH MD May 29, 2018 08:30
[2018-05-29] MEDS ORDERED: FOLIC ACID/CYANOCOB/PYRIDOXINE PO SCH (09:00)
[2018-05-29] MEDS ORDERED: MAGNESIUM SUL* 2 GM/50 ML IVPB 50 ML IVPB ONE (09:00)
[2018-05-29 09:51] VITALS: BP 130/99
--- NOTE | 2018-05-29 11:43 | Hospitalist Depart ---
Discharge Summary Reason for Hosp/Final Diag: (1) Alcohol withdrawal Status: Acute Hospital Course & Plan: He was initially placed on IV Precedex and IV Ativan for control of his symptoms. He was also given IV fluids, magnesium supplementation, and B vitamins. He did very well and we were able to transition from the IV medication regimen back to oral Valium for his withdrawal. I discussed his status with Dr. See. He felt Mr. Massey could transfer back to the [facility] unit to continue his management and hopefully get set for ongoing rehab. (2) Alcohol use disorder, severe, dependence Status: Chronic Hospital Course & Plan: Apparently, he wants to detox and then pursue further treatment to maintain abstinence. He will transfer back to [facility] unit to continue his care. (3) Hypomagnesemia Status: Acute Hospital Course & Plan: We did replace with IV magnesium. He will now be on an oral supplement. Will need to check a follow up lab in a few days. Departure Weight (Pounds): 156 Result Diagram: 05/28/18 0524 05/29/18 0507 Item Value Date Time Albumin 3.1 g/dl L 05/28/18 0524 Total Protein 5.8 g/dl L 05/28/18 0524 Alkaline Phosphatase 63 U/L 05/28/18 0524 Alanine Aminotransferase (ALT/SGPT) 68 U/L H 05/28/18 0524 Aspartate Amino Transf (AST/SGOT) 111 U/L H 05/28/18 0524 Total Bilirubin 0.9 mg/dl 05/28/18 0524 Magnesium Level 1.8 mg/dl 05/28/18 0524 Calcium Level 8.6 mg/dl 05/28/18 0524 Random Glucose 102 mg/dl 05/28/18 0524 Glomerular Filtration Rate Calc > 60.0 05/28/18 0524 Creatinine 0.40 mg/dl L 05/28/18 0524 Blood Urea Nitrogen 10 mg/dl 05/28/18 0524 Carbon Dioxide Level 25 mmol/L 05/28/18 0524 Chloride Level 108 mmol/L H 05/28/18 0524 Potassium Level 3.5 mmol/L 05/28/18 0524 Sodium Level 141 mmol/L 05/28/18 0524 Magnesium Level 1.5 mg/dl L 05/29/18 0507 Condition: Improved Discharge: [facility] Follow-Up Labs: Other (BMP and Magnesium level in 2-3 days.) Discharge Instructions Home Meds Reported Medications Magnesium Oxide (MAG-OXIDE) 400 Mg Tablet, 400 MG PO QAM 05/27/18 Multivits,Ca,Minerals/Iron/Fa (THERA-M TABLET) 1 Each Tablet, 1 EACH PO DAILY 05/27/18 Folic Acid (FOLIC ACID) 1 Mg Tablet, 1 MG PO QDAY, TAB 05/27/18 Thiamine Hcl (THIAMINE HCL) 100 Mg Tablet, 100 MG PO DAILY 05/27/18 Diazepam (VALIUM) 5 Mg Tablet, 10-20 MG PO PP Y for FOLLOW CIWA PROTOCOL, 05/27/18 Diet: Regular Activity: As Tolerated Special Instructions: His follow up with be as per Dr. See. Venous Thromboembolism Antithrombotics Is Pt On Any Antithrombotics?: No MARTI MCCULLOUGH MD May 29, 2018 11:42
[2018-05-30] MEDS ORDERED: NIC10R INH (11:05)
== END 2018-05-29 11:50 | DRG 897 ==
LOC: ICU 15:57
PROVIDERS: ADMIT Internal Medicine; ATTEND Internal Medicine
DX: F10.231 Alcohol dependence with withdrawal delirium (principal); F17.210 Nicotine dependence, cigarettes, uncomplicated; E83.42 Hypomagnesemia
CPT/HCPCS: 36415; 82040; 82247; 82310; 82374; 82435; 82565; 82947; 83735; 84075; 84132; 84155; 84295; 84450; 84460; 84520; 85025; J2060; J3411; J3475; J7030

== ENCOUNTER 2018-05-29 11:50 | Inpatient (IN) | payer SELFPAY ==
[~2018-05-29] VITALS: Ht 185.4 cm; Wt 74.8 kg
[2018-05-29] MEDS ORDERED: NICOTINE CARTRIDGE 1 EA PO PRN (12:15)
[2018-05-29] MEDS ORDERED: MAG HYD/AL HYD/SIMETH 30ML UDC PO PRN (12:15)
[2018-05-29 12:55] VITALS: BP 110/86
[2018-05-29] MEDS ORDERED: LOPERAMIDE HCL 2 MG CAP PO PRN (13:15)
[2018-05-29 17:38] VITALS: BP 142/98
[2018-05-29] MEDS: NICOTINE INH SYSTEM 10 MG/INH INH PRN (18:55)
[2018-05-29 22:35] VITALS: BP 140/90
[2018-05-30 04:00] VITALS: BP 141/108
[2018-05-30] MEDS: DIAZEPAM 10 MG TAB PO PRN ×2 (04:21→10:37)
[2018-05-30 06:27] LABS: PLATELET COUNT, AUTOMATED 143 K/uL (150-450)
[2018-05-30 08:30] VITALS: BP 140/90
[2018-05-30] MEDS: NICOTINE INH SYSTEM 10 MG/INH INH PRN ×3 (08:40→12:26)
[2018-05-30] MEDS ORDERED: MAGNESIUM OXIDE 400 MG TAB PO SCH (09:00)
[2018-05-30] MEDS ORDERED: THIAMINE HCL 100 MG TAB PO SCH (09:00)
[2018-05-30] MEDS ORDERED: FOLIC ACID 1 MG TAB PO SCH (09:00)
[2018-05-30] MEDS ORDERED: MULTIVITAMINS TAB PO SCH (09:00)
[2018-05-30] MEDS ORDERED: NIC10R INH (11:05)
[2018-05-30 12:54] VITALS: BP 132/88
--- NOTE | 2018-05-31 15:19 | SCHAAF H&P ---
This is a History and Physical as well as a Discharge Summary for a patient who was on the unit from May 29, 2018, to May 30, 2018. DATE OF ADMISSION: May 29, 2018 DATE OF DISCHARGE: May 30, 2018 Patient was seen for note concerning this dictation in the a.m. of 30 May 2018 at approximately 1000 hours. ATTENDING PHYSICIAN Russel See MD FINAL DIAGNOSES PER DIAGNOSTIC AND STATISTICAL MANUAL OF MENTAL DISORDERS, FIFTH EDITION 1. Alcohol use disorder, severe. 2. Alcohol withdrawal which was complicated with delirium tremens, considered resolved. 3. Patient having supportive family. 4. Stressors of severe alcohol use disorder ongoing. REASON FOR ADMISSION This is a 48-year-old male who was recently on the [facility] Unit from May 23, 2018, to May 27, 2018. At that time, patient had to be transferred to the ICU for further alcohol withdrawal management as patient was slipping into delirium tremens. Patient returned to the [facility] Unit on May 29, 2018, to finalize alcohol withdrawal and prepare discharge plans, patient deciding not to go to rehab, and patient was discharged to home on May 30, 2018, into the care of supportive family. Please see H and P concerning admission of May 23, 2018, to [facility] for history. PHYSICAL EXAMINATION Please see emergency room and ICU notes. VITAL SIGNS: Vital signs at time of discharge from [facility], temperature 98.4, pulse 110, respiratory rate 16, blood pressure 132/88, and pulse oximetry 93% on room air. LABORATORY DATA On May 30, 2018, CBC notable for MCV remaining elevated at 105.6 and MCH elevated at 37.3, platelet count slightly low at 143,000. CMP on May 30, 2018, notable for AST and ALT elevated at 115 and 104 respectively. For further laboratory data, please see electronic record. MENTAL STATUS EXAMINATION AT TIME OF DISCHARGE GENERAL APPEARANCE, BEHAVIOR, AND ATTITUDE: This is a cooperative, polite, 48-year-old male appearing somewhat older than stated age. Patient still having evidence of some mild cognitive impairment secondary to recovery from delirium. Patient, however, well oriented and able to communicate effectively with family members, and he would discharge into their care. No periods of tearfulness. Making fair eye contact. No bizarre mannerisms or tics. SPEECH: Somewhat slowed, although baseline is not known for sure in this patient. MOOD: Considered okay. AFFECT: Neutral to full at times and mood congruent. THOUGHT PROCESSES: Appear goal directed and logical, patient reporting he must help his friend with some drywall work before entering rehab. No loose associations or flight of ideas. THOUGHT CONTENT: Free of auditory or visual hallucinations, ideas of reference, thought broadcastings, delusions, obsessions, or compulsions. The patient adamantly denying any suicidal or homicidal ideations. SENSORIUM: Clear. COGNITION: Alert and oriented to person, place, time, and situation. MEMORY: Immediate, recent, and remote estimated intact. INTELLIGENCE: Average based on interview. INSIGHT AND JUDGMENT: Considered grossly intact in the absence of alcohol use. RESULTS OF TESTING IMAGING: Please see electronic record for imaging that took place on May 23, 2018. LABORATORY DATA: See above. CONSULTATIONS None. TREATMENT Patient received medications, participated in individual and group therapy. HOSPITAL COURSE This is, again, a brief readmission after patient returning from ICU. On the Behavioral Health Floor, patient received minimal Valium to complete any alcohol withdrawal. Patient was strongly encouraged to enter rehab program, but patient wanting to return to outpatient status at this time. Patient was, however, stating he would go into rehab next week, and family members aware and able to transport. CONDITION OF PATIENT ON DISCHARGE Stable, considered minimal risk to himself or others in the absence of alcohol. DISPOSITION Discharged to home in care of family members. He would abstain from alcohol, all Tylenol and acetaminophen-containing products. Patient was strongly encouraged entrance into rehab and would seek out AA and obtain a sponsor. He would go to crisis line should symptoms return. DISCHARGE MEDICATIONS 1. Folic acid 1 mg daily. 2. Magnesium oxide 400 mg daily. 3. Multivitamin with minerals daily. 4. Thiamine 100 mg daily. 5. Patient was encouraged to continue nicotine replacement in an effort to stop smoking in this patient who is likely developing COPD. Risks, benefits, and alternatives of above discharge plan were discussed. Informed consent was given to proceed with above discharge plan by this cooperative patient and patient's family members. This is a History and Physical as well as a Discharge Summary for a patient who was on the unit from May 29, 2018, to May 30, 2018. VENTURA
== END 2018-05-30 17:35 | disposition home or self-care (01) | DRG 897 ==
LOC: BHS 11:50
PROVIDERS: ADMIT Psychiatry & Neurology Psychiatry; ATTEND Psychiatry & Neurology Psychiatry
DX: F10.231 Alcohol dependence with withdrawal delirium (principal)
CPT/HCPCS: 36415; 82040; 82247; 82310; 82374; 82435; 82565; 82947; 83735; 84075; 84132; 84155; 84295; 84450; 84460; 84520; 85025